=== PATIENT | female | born 1985 | race Caucasian/White ===

== ENCOUNTER 2024-09-29 23:56 | Emergency (ER) | payer OTHER ==
[~2024-09-29] VITALS: Ht 162.6 cm; Wt 63.5 kg
[~2024-09-29 23:56] MED LIST: BIRTH CONTROL; CEPH500 PO; CYCL10 PO; Esgic Tablet1 EACH PO; HYDACE5 PO; NAPR550 PO; Pyridium200 MG
[2024-09-30 00:09] VITALS: BP 129/83
[2024-09-30] MEDS ORDERED: Amoxicillin 875 MG Tab PO ONE (01:00)
[2024-09-30] MEDS ORDERED: Ibuprofen 600 MG Tab PO ONE (01:00)
[2024-09-30] MEDS ORDERED: AMOX875 PO (01:02)
== END 2024-09-30 01:10 | disposition home or self-care (01) ==
LOC: ER 23:56
DX: H66.92 Otitis media, unspecified, left ear (principal); Z79.2 Long term (current) use of antibiotics; Z59.89 Other problems related to housing and economic circumstances
CPT/HCPCS: 99282; A9270